=== PATIENT | male | born 1985 | race African-American/Black ===

== ENCOUNTER 2021-08-14 07:00 | Emergency (ER) | payer MEDICARE ==
[~2021-08-14] VITALS: Ht 182.9 cm; Wt 127.0 kg
[2021-08-14 07:27] VITALS: BP 152/69
[2021-08-14] MEDS ORDERED: CHLO473M2 PO (07:36)
== END 2021-08-14 08:03 | disposition home or self-care (01) ==
LOC: ER 07:00
DX: K04.7 Periapical abscess without sinus (principal)
CPT/HCPCS: 99281